=== PATIENT | male | born 1945 | race Caucasian/White ===

== ENCOUNTER 2022-11-20 04:08 | Observation (INO) | payer MEDICARE, SELFPAY ==
[2022-11-20] VITALS (34 sets, daily range): BP systolic 79–130; BP diastolic 46–69; PULSE 82–120; RESP 14–32; TEMP 36.5–37.7; O2SAT 90–97; BMI 33.6
--- NOTE | ~2022-11-20 | XR_ITS ---
EXAMINATION: XR chest 2V DATE: 11/20/2022 07:39 INDICATION: Cough and weakness TECHNIQUE: Frontal and lateral views of the chest are obtained COMPARISON: None available FINDINGS: The lungs are free of acute opacities. No pleural effusion or pneumothorax. The cardiomedia stinal silhouette is normal. There is moderate thoracic spondylosis. IMPRESSION: 1. No acute cardiopulmonary abnormality. Reviewed, dictated and finalized at location A.
--- NOTE | ~2022-11-20 | XR_ITS ---
EXAM: XR abdomen/kub 1V DATE: 11/20/2022 18:48 HISTORY: hematuria, flank pain,urinary retention hx of a kidney stone . COMPARISON: None available. FINDINGS: Clear lung bases. Normal bowel gas pattern. No organomegaly. Multiple calcified cages proj ect over the bilateral renal shadows. Pelvic phleboliths. Lower lumbar degenerative disc disease. Jose Manuel ateral uncomplicated appearing but incompletely visualized hip arthroplasties. IMPRESSION: Bilateral nephrolithiasis. Reviewed, dictated and finalized at location K. IMPRESSION: Bilateral nephrolithiasis.
[2022-11-20] MEDS: SODIUM CHLORIDE 0.9% IV 1,000 ML 999 ML IV CONT ×3 (04:26→18:50)
[2022-11-20] MEDS: ONDANSETRON INJ 4 MG/2 ML VIAL IV PUSH ×2 (04:28→21:14)
--- NOTE | 2022-11-20 04:36 | ED.NAVMDI ---
HPI - Nausea/Vomiting/Diarrhea General Chief complaint: Nausea/Vomiting/Diarrhea <Nilson Gleason MD - Last Filed: 11/22/22 10:04> Stated complaint: Vomitting <Nilson Gleason MD - Last Filed: 11/22/22 10:04> Time Seen by Provider: 11/20/22 04:32 <Nilson Gleason MD - Last Filed: 11/22/22 10:04> Source: patient and RN notes reviewed <Nilson Gleason MD - Last Filed: 11/22/22 10:04> Mode of arrival: ambulatory <Nilson Gleason MD - Last Filed: 11/22/22 10:04> Limitations: no limitations <Nilson Gleason MD - Last Filed: 11/22/22 10:04> History of Present Illness MD elicited complaint: nausea and vomiting <Nilson Gleason MD - Last Filed: 11/22/22 10:04> Onset (ago): day(s) (2) <Nilson Gleason MD - Last Filed: 11/22/22 10:04> Description of vomiting: food contents and watery <Nilson Gleason MD - Last Filed: 11/22/22 10:04> Description of diarrhea: semi-solid <Nilson Gleason MD - Last Filed: 11/22/22 10:04> Associated nausea: Yes <Nilson Gleason MD - Last Filed: 11/22/22 10:04> Associated abdominal pain: No <Nilson Gleason MD - Last Filed: 11/22/22 10:04> Exacerbating factors: eating <Nilson Gleason MD - Last Filed: 11/22/22 10:04> Relieving factors: none <Nilson Gleason MD - Last Filed: 11/22/22 10:04> Associated symptoms: myalgias, cough, headaches, malaise and weakness <Nilson Gleason MD - Last Filed: 11/22/22 10:04> Related Data Home medications: Home Medications Medication Instructions Recorded Confirmed apixaban 5 mg tablet (Eliquis) 5 mg PO BID 11/20/22 11/21/22 <Nilson Gleason MD - Last Filed: 11/22/22 10:04> Allergies/Adverse reactions: Allergies Allergy/AdvReac Type Severity Reaction Status Date / Time No Known Allergies Allergy Verified 11/20/22 04:20 <Nilson Gleason MD - Last Filed: 11/22/22 10:04> Review of Systems Review of Systems: All systems reviewed & are unremarkable except as noted in HPI and below <Nilson Gleason MD - Last Filed: 11/22/22 10:04> Genitourinary: Genitourinary: Reports hematuria <Nilson Gleason MD - Last Filed: 11/22/22 10:04> PMFSH Past Medical History Medical History: Medical History (Updated 11/21/22 @ 01:22 by Gisel Gomez MD) DVT (deep venous thrombosis) <Nilson Gleason MD - Last Filed: 11/22/22 10:04> Surgical History Surgical History: Surgical History History of hip replacement bilateral <Nilson Gleason MD - Last Filed: 11/22/22 10:04> Family History Family History: Family History (Updated 11/21/22 @ 01:46 by Lesia Gonzalez RN) Mother Cerebrovascular accident Other Unknown family medical history <Nilson Gleason MD - Last Filed: 11/22/22 10:04> Social History Social History: Social History (Updated 11/20/22 @ 04:46 by Nilson Gleason MD) Smoking status: Never smoker Second hand tobacco smoke exposure: No Alcohol intake: former Substance use: never Substance use type: does not use Lack of Transportation: No Lack of Food: Never True Current Housing: I Have Housing Concerned About Future Housing: No Difficulty Paying Gas/Electric Bills: No Difficulty Paying for Meds: No Currently Unemployed: No Education: Trade/Vocational Certificate Difficulty w/ Childcare or Family Care: No Spiritual care concerns: No <Nilson Gleason MD - Last Filed: 11/22/22 10:04> Exam Const: General: healthy appearing, no acute distress and alert <Nilson Gleason MD - Last Filed: 11/22/22 10:04> Nutritional Appearance: well nourished <Nilson Gleason MD - Last Filed: 11/22/22 10:04> Orientation/consciousness: patient oriented x3 <Nilson Gleason MD - Last Filed: 11/22/22 10:04> Limitations: no limitations <Nilson Gleason MD - Last Filed: 11/22/22 10:04> HENMT: Head: normal to inspection <Nilson Gleason MD - [place]
[2022-11-20 05:05] LABS: Basophils Absolute Auto 0.03 K/mm3 (0.00-0.10); Basophils Percent Auto 0.3 % (0.0-1.0); Hematocrit 38.4 % (37.0-46.0); Hemoglobin 12.1 g/dL (12.4-15.3); Immature Granulocyte Absolute 0.05 K/mm3 (0.00-0.00); Immature Granulocyte Percent A 0.4 % (0.0-0.0); Lymphocytes Percent Auto 1.7 % (18.0-42.0); Mean Corpuscular HGB Conc 31.5 g/dL (32.0-36.0); Mean Corpuscular Hemoglobin 28.5 pg (27.0-31.0); Mean Corpuscular Volume 90.6 fL (78.0-102.0); Mean Platelet Volume 10.4 fl (8.7-11.0); Monocytes Absolute Auto 0.02 K/mm3 (0.10-0.90); Monocytes Percent Auto 0.2 % (2.0-11.0); Neutrophils Absolute Auto 11.3 K/mm3 (1.7-7.2); Neutrophils Percent Auto 97.4 % (50.0-70.0); Platelet Count Result 212 K/mm3 (150-420); Red Blood Count 4.24 M/mm3 (4.70-6.10); Red Cell Distribution Width 14.3 % (11.6-14.4); White Blood Count 11.6 K/mm3 (4.8-10.8)
[2022-11-20 05:21] LABS: Lactic Acid Reflex 3.4 mmol/L (0.4-2.0)
[2022-11-20 05:28] LABS: Alanine Aminotransferase 28 U/L (16-63); Albumin Level 2.7 g/dL (3.4-5.0); Alkaline Phosphatase 120 U/L (46-116); Anion Gap 10 mmol/L (8-16); Aspartate Amino Transferase 19 U/L (15-37); Bilirubin,Total 0.7 mg/dL (0.00-1.00); Blood Urea Nitrogen 21 mg/dL (7-18); Carbon Dioxide 25 mmol/L (21-32); Chloride 106 mmol/L (98-108); Estimated CRCL calculation 38 ml/min; Estimated Glomerular Filt Rate 49; Glucose 116 mg/dL (70-99); Osmolality Calculated 296 mOsm/kg (285-295); Sodium 141 mmol/L (136-145); Total Protein 6.8 g/dL (6.4-8.2)
[2022-11-20 05:30] LABS: CRP 18.4 mg/dL (0.0-0.9)
[2022-11-20 05:34] LABS: Bilirubin Urine Negative (Negative); Blood Urine 3+ (Negative); Color Urine Light Yellow (Yellow); Glucose Urine UA Negative (Negative); Ketones Urine Negative (Negative); Leukocyte Esterase Ur 3+ LEU/UL (Negative); Nitrate Urine Positive (Negative); Protein Urine 2+ (Negative); Specific Grav Ur 1.015 (1.010-1.020); Urobilinogen Urine 0.2 mg/dL (0.2-1.0)
[2022-11-20 05:42] LABS: Influenza A QL RT-PCR Negative (Negative); Influenza B QL RT-PCR Negative (Negative); SARS-CoV-2 RNA PCR Negative (Negative)
[2022-11-20 05:45] LABS: Add Urine Microscopic? YES; Appearance Urine Cloudy (Clear); Bacteria Urine 4+ /hpf; RBC Urine >75 /hpf (0-2); Squamous Epithelial Cell Urine Occasional /hpf (Few); WBC Urine >75 /hpf (0-3)
--- NOTE | 2022-11-20 06:48 | PC.NURSE ---
Pt resting c family at bedside. POC discussed c pt to await a 3 hr timed Lactic acid blood redraw. VSS, lights dimmed, no c/o pain or n/v. Call beckwith at pt side.
--- NOTE | 2022-11-20 06:59 | PC.NURSE ---
Pt resting, report to CHRISTY Hughes
[2022-11-20] MEDS: LACTATED RINGERS 1,000 ML 999 ML IV CONT (07:07)
[2022-11-20 08:02] LABS: Reflex Lactic Acid Yes or No Add Lactic
--- NOTE | 2022-11-20 08:08 | PC.NURSE ---
0700report obtained from juan pérez. no questions or concerns. introduced self to pt. pt resting per cot. and daughter at bedside. call beckwith in reach. 0730 pt denies any pain, feeling better since arrival. denies nausea, no vomiting 0810 lab drawn for repeat lactic level
[2022-11-20 08:36] LABS: Lactic Acid 1.6 mmol/L (0.4-2.0)
--- NOTE | 2022-11-20 09:00 | ADMGEN ---
This patient, Cristofer Yi, was admitted to 2nd Floor Room 205-1. Patient/family oriented to hospital policies and general routines including ID bracelet, bed and alarms, visiting hours, pain management, procedures, bathroom and other care routines, personal items, smoking policy, room service/diet, and visiting hours. Information on how to activate the Rapid Response Team has been discussed. Patient/Family are encouraged to report perceived risks to care and to ask questions if they do not understand what they are told or what they should do.
[2022-11-20] MEDS: SODIUM CHLORIDE 0.9% IV 1,000 ML 125 ML IV CONT (09:28)
[2022-11-20] MEDS: APIXABAN 2.5 MG TABLET 5 MG PO ×2 (09:29→17:17)
[2022-11-20] MEDS: HYDROcodone/acetaminophen (*CRX) 5-325 MG TABLET 1 TAB PO (09:30)
[2022-11-20] MEDS: LORATADINE 10 MG TABLET PO (12:33)
--- NOTE | 2022-11-20 19:18 | PM.EVENT ---
Event Note Event Note Event Note: ordered warren to be placed due to inadequate urine output. Patient has had over 4000ml infused due to sepsis and according to nurse have only put out approximately 700 which is still inadequate. According to patients Nurse Ling patient preferred to be bladder scan . According to Ling RN while patient was at [facility] he was ordered bladder scan which indicate he has a history of urinary retention and refused warren placement. Encouraged patient nurse to speak with him about placement of warren. Patient wants warren placed as last option. This is last option and straight cath increase further introduction to bacteria. Will order straight cath for now and speak with patient myself in the am.
--- NOTE | 2022-11-20 19:52 | PC.NURSE ---
Bladder scan completed 1 image showed 370mL retaining and a printed copy showing 284mL of urine retained in pt's bladder.
--- NOTE | 2022-11-20 19:59 | PC.NURSE ---
ANABELL Manuel being made aware and notified of bladder scan results, and CT results.
--- NOTE | 2022-11-20 20:31 | PC.NURSE ---
Sri Manuel, [employer] BUSINESS ANALYST/Hospitalist, notified that nurse was unable to insert #16 Fr warren cath and a #16 Coude. Patient stated this has happened several times before. Sri Manuel working on pt transfer to [facility].
--- NOTE | 2022-11-20 21:09 | PC.NURSE ---
Sri Manuel, PACKING SUPERVISOR/Hospitalist, updated on patient status and blood pressure of 104/60 with MAP of 75.
--- NOTE | 2022-11-20 21:14 | PM.TDS ---
Transfer Discharge Sum: Prov Provider Date of admission: 11/20/22 08:23 Primary care physician: UNKNOWN,DOCTOR Admitting clinician: Favio Wu MD Attending physician on admission: Norberto Wu Attending physician on discharge: Norberto uW Discharging clinician: Be Manuel DS: Admitting Diagnosis Discharge Date 11/20/2022 Admitting Diagnosis sepsis DS: Discharge Diagnosis Discharge Diagnosis Plan sepsis Transfer Discharge Sum: Med Medications Active and Home Medications: Home Medications apixaban 5 mg tablet (Eliquis) 5 mg PO BID 11/20/22 [History Confirmed 11/20/22] Active Medications Acetaminophen (Acetaminophen 325 Mg Tablet) 650 mg PO Q4H PRN PRN Reason: Mild Pain (1-3) or Fever Hydrocodone Bitart/Acetaminophen (Hydrocodone/Acetaminophen (*Crx) 5-325 Mg Tablet) 1 tab PO Q6HR PRN PRN Reason: Pain Rated 7-10 Apixaban (Apixaban 2.5 Mg Tablet) 5 mg PO BID [facility] Stop: 12/20/22 08:59 Last Admin: 11/20/22 17:17 Dose: 5 mg Fluticasone Propionate (Fluticasone Propionate 0.05% Na Spr 16 Gm Btl (*Bkc)) 1 spray NASAL Q12HR [facility] Last Admin: 11/20/22 12:17 Dose: Not Given Vancomycin HCl (Vancomycin 1,500 Mg/D5w 500 Ml) 1,500 mg in 500 mls @ 250 mls/hr IVPB Q24H DELL Norepinephrine Bitartrate (Levophed 8 Mg/D5w 250 Ml) 8 mg in 250 mls @ 9.375 mls/hr IV CONT .Q24H DELL Loratadine (Loratadine 10 Mg Tablet) 10 mg PO QAM [facility] Last Admin: 11/20/22 12:33 Dose: 10 mg Ondansetron HCl (Ondansetron Inj 4 Mg/2 Ml Vial) 4 mg IV PUSH Q6H PRN PRN Reason: Nausea And Vomiting Tramadol HCl (Tramadol Hcl (*Crx) 25 Mg Tablet) 25 mg PO Q6H PRN PRN Reason: Pain Rated 4-6 Trazodone HCl (Trazodone Hcl 50 Mg Tablet) 50 mg PO HS PRN PRN Reason: Insomnia Transfer Discharge Sum: Hosp Hospital Course Hospital course: Cristofer Yi is a 76 year old male that represented to our ED with complains of n/v/d found to be septic secondary to a UTI, as evidence by tachycardiac, hypotensive and an elevated lactic acid on admission.patient has a pass medical history of dvt to upper extremity,and a history of kidney stone. It was originally believe that patient condition would improve with fluid and antibiotic. After over 4L patient blood pressure remain in the 80's/50's. Patient was also retaining fluid.It was reported that his output was 700ml. A KUB was completed to determine if there was a blockage since patient had a history of stones. No stones noted on KUB. A warren was unable to be placed. According to patient he has had problems with warren placement in the pass. Patient has been placed on levophed and awaiting call back for transfer. Patient recieved rocephan in the ED and vanco was added. His wbc is slightly elevated Time Spent with Patient Time attestation: Total time spent providing and/or coordinating transfer services: Exam Narrative: refer to ED notes exam was not completed by the provider DS: Data Data Completed and Pending Labs on day of discharge: Labs from last 24 hours 11/20/22 11/20/22 11/20/22 08:12 05:00 05:00 WBC RBC Hgb Hct MCV MCH MCHC RDW Plt Count MPV Immature Gran % (Auto) Neut % (Auto) Lymph % (Auto) Granite % (Auto) Eos % (Auto) Baso % (Auto) Lymph # (Auto) Granite # (Auto) Eos # (Auto) Baso # (Auto) Abs Immat Gran (auto) Absolute Neuts (auto) Absolute Nucleated RBC Nucleated RBC % Sodium Potassium Chloride Carbon Dioxide Anion Gap BUN Creatinine Estim Creat Clear Calc Estimated GFR Glucose Calculated Osmolality Lactic Acid 1.6 3.4 H Calcium Total Bilirubin AST ALT Alkaline Phosphatase C-Reactive Protein 18.4 H Total Protein Albumin Urine Color Urine Appearance Urine pH Ur Specific Drummond Urine Protein Urine Glucose (UA) Urine Ketones Ur Blood (Man) Urine Nitrate Urine Bili
[2022-11-20] MEDS: NOREPINEPHRINE 8 MG/D5W 250 ML 8 MG/250 ML BAG 9.38 MG IV CONT (21:54)
--- NOTE | 2022-11-20 23:02 | PC.NURSE ---
This RN spoke w/Lesia at [facility] and gave report on the pt. After report was completed this RN informed Lesia that we will contact [facility] once the pt is picked up by ambulance for transfer.
--- NOTE | 2022-11-20 23:05 | PC.NURSE ---
[facility] called to transfer patient to [facility] for higher level of care.
--- NOTE | 2022-11-20 23:16 | PC.NURSE ---
This RN attempted to contact pt's daughter, Sidra, and was unable to get ahold of her. This RN left a voicemail informing the daughter that the pt will be transferred to [facility] and gave a report to Lesia.
--- NOTE | 2022-11-20 23:26 | PC.NURSE ---
Pt's belonging placed in belongings bag and prepared for grape picker when ambulance crew arrives.
--- NOTE | 2022-11-20 23:30 | PC.NURSE ---
Ambulance crew arrived and this RN rode w/pt while on drip to [facility] and passed pt off to Lesia HARRISON.
== END 2022-11-20 23:35 | disposition short-term general hospital (02) ==
LOC: CHSED 08:22 → CHS2ND 08:41
PROVIDERS: Admitting Provider Internal Medicine; Emergency Provider Emergency Medicine; Visit Provider Internal Medicine
DX: A41.9 Sepsis, unspecified organism (principal); N39.0 Urinary tract infection, site not specified; Z86.718 Personal history of other venous thrombosis and embolism; Z79.01 Long term (current) use of anticoagulants; Z96.643 Presence of artificial hip joint, bilateral; Z20.822 Contact with and (suspected) exposure to COVID-19
CPT/HCPCS: 36415; 71046; 74018; 80053; 81001; 83605; 85025; 86140; 87040; 87077; 87086; 87088; 87147; 87186; 87502; 96361; 96365; 96366; 96367; 96375; 96376; 99285; A9270; G0378; J0696; J2405; J3370; J7030; J7120; U0003; U0005

== ENCOUNTER 2022-11-21 00:21 | Inpatient (IN) | payer MEDICARE, SELFPAY ==
[2022-11-21] VITALS (11 sets, daily range): BP systolic 91–125; BP diastolic 57–77; PULSE 75–104; RESP 15–20; TEMP 36.8–36.9; O2SAT 93–100; BMI 28.1
--- NOTE | ~2022-11-21 | XR_ITS ---
EXAMINATION: XR chest 1V portable DATE: 11/21/2022 05:39 INDICATION: Sepsis. TECHNIQUE: A single frontal view of the chest was obtained. COMPARISON: Chest 2 views 11/20/2022 FINDINGS: The chest demonstrates clear lungs without pneumonia, pleural effusion, or pneumothorax. Th e heart size is normal. IMPRESSION: 1. No acute cardiopulmonary disease. Reviewed, dictated and finalized at location A.
--- NOTE | ~2022-11-21 | CT_ITS ---
EXAMINATION: CT abdomen pelvis wo con DATE: 11/21/2022 13:03 INDICATION: Abdominal pain and hematuria TECHNIQUE: Computed tomography (CT) of the chest was performed without intravenous contrast. The dose -length product (DLP) was 695.84 mGy-cm. Automated exposure control and iterative reconstruction tech nique were employed. COMPARISON: None FINDINGS: There are small pleural effusions. Mild atelectasis is noted in the lung bases. The heart s ize is normal. Calcified left hilar and subcarinal lymph nodes are consistent with old granulomatous disease. There is calcified coronary artery atherosclerosis. Cysts of the liver measure up to 8 mm in the left hepatic lobe. Punctate calcifications of the liver and spleen likely represent healed granu lomatous disease. There is a small sliding hiatal hernia. Punctate calcifications of the pancreas lik poornima reflect chronic pancreatitis. The gallbladder and adrenal glands are normal. Nonobstructing stone s of the kidneys measure up to 11 mm on the left and 4 mm on the right. Although evaluation is limite d by streak artifact in the pelvis, no stones are identified in the ureters or bladder. No hydronephr osis or hydroureter. There is mild inflammatory change surrounding the right mid ureter. There is a s mall volume of pelvic ascites. No pathologically enlarged abdominal or pelvic lymph nodes are identif ied. There is mild lumbar spondylosis. Bilateral hip arthroplasties are noted. IMPRESSION: 1. Mild inflammatory change surrounding the right ureter which could reflect recent passage of stone. No ureteral or bladder stones identified. 2. Nonobstructing bilateral nephrolithiasis. Reviewed, dictated and finalized at location B. IMPRESSION: 1. Mild inflammatory change surrounding the right ureter which could reflect re cent passage of stone. No ureteral or bladder stones identified. 2. Nonobstructing bilateral nephrolithiasis.
--- NOTE | 2022-11-21 00:30 | ADMGEN ---
This patient, Cristofer Yi, was admitted to Intensive Care Unit-1. Patient/family oriented to hospital policies and general routines including ID bracelet, bed and alarms, visiting hours, pain management, procedures, bathroom and other care routines, personal items, smoking policy, room service/diet, and visiting hours. Information on how to activate the Rapid Response Team has been discussed. Patient/Family are encouraged to report perceived risks to care and to ask questions if they do not understand what they are told or what they should do.
--- NOTE | 2022-11-21 00:58 | PM.IMHP ---
H&P: HPI History of Present Illness Date/Time: 11/21/22 00:58 Chief Complaint: Chills Narrative: This is a 76-year-old male with past medical history significant for DVT, degenerative joint disease, status post bilateral hip replacement. Patient presents to [facility] as a transfer from outside facility [facility] after he presented there to the emergency room due to trach in chills, back pain and abdominal pain, patient has not been feeling well for the last 3 days is busy [place] was staying with his daughter, denies any nausea or vomiting had an episode of diarrhea, appetite has not been good. Patient initially required fluid resuscitation due to low blood pressure however did not initially respond and needed vasopressor and transferred to our facility to intensive care unit. However patient at this moment is not requiring vasopressor is awake and alert. Review of Systems Review of Systems: Chills, rigors, abdominal pain, back pain for 3 days Constitutional: Constitutional: Reports chills, Reports fever(s), Reports malaise and Reports poor appetite Eyes: Eyes: Denies change in vision ENT: Denies dysphagia and Denies odynophagia Cardiovascular: Cardiovascular: Denies chest pain Respiratory: Respiratory: Denies chest congestion, Denies cough and Denies dyspnea Gastrointestinal: Gastrointestinal: Reports abdominal pain, Denies dyspepsia, Denies heartburn, Reports diarrhea (One episode), Denies nausea and Denies vomiting Genitourinary: Genitourinary: Denies dysuria and Reports flank pain Musculoskeletal: Musculoskeletal: Reports other (Bilateral hip replacement, left leg DVT) Integumentary/Breasts: Skin/Breast: Denies rash Neurologic: Denies focal weakness and Denies Sensory deficit (Neuro) Psychiatric: Psychiatric: Reports no additional psychiatric complaints and Reports as per HPI Endocrine: Endocrine: Denies cold intolerance, Denies flushing, Denies heat intolerance, Denies polyphagia, Denies polydipsia and Denies palpitations Hematologic/Lymphatic: Hematologic/Lymphatic: Reports no additional hematologic/lymphatic complaints and Reports as per HPI Allergic/Immunologic: Allergic/Immunologic: Reports no additional allergic/immunologic complaints and Reports as per HPI PMFSH Past Medical History Medical History (Updated 11/21/22 @ 01:22 by Gisel Gomez MD) DVT (deep venous thrombosis) Surgical History Surgical History History of hip replacement bilateral Family History Family History (Updated 11/20/22 @ 11:04 by Ling Sullivan RN) Other Unknown family medical history Social History Social History (Updated 11/20/22 @ 04:46 by Nilson Gleason MD) Smoking status: Never smoker Second hand tobacco smoke exposure: No Alcohol intake: former Substance use: never Substance use type: does not use Lack of Transportation: No Lack of Food: Never True Current Housing: I Have Housing Concerned About Future Housing: No Difficulty Paying Gas/Electric Bills: No Difficulty Paying for Meds: No Currently Unemployed: No Education: Trade/Vocational Certificate Difficulty w/ Childcare or Family Care: No Spiritual care concerns: No Meds Home Medications and Allergies Home Medications Medication Instructions Recorded Confirmed Type apixaban 5 mg tablet (Eliquis) 5 mg PO BID 11/20/22 11/21/22 History fluticasone propionate 50 1 spray intranasal Q12HR 11/20/22 11/21/22 Rx mcg/actuation nasal spray,suspension loratadine 10 mg tablet 10 mg PO QAM 11/20/22 11/21/22 Rx trazodone 50 mg tablet 50 mg PO HS PRN Insomnia 11/20/22 11/21/22 Rx Allergies Allergy/AdvReac Type Severity Reaction Status Date / Time No Known Allergies Allergy Verified 11/20/22 04:20 Exam Narrative: Patient is sitting in bed Const: General: comfortable, no acute distress, well developed,
--- NOTE | 2022-11-21 01:01 | ECG_ITS ---
Measurements Intervals Concepcion Rate: 75 P: 29 OH: 155 QRS: -2 QRSD: 80 T: 12 QT: 369 QTc: 414 Interpretive Statements SINUS RHYTHM NORMAL ECG NO PREVIOUS ECG AVAILABLE FOR COMPARISON Electronically Signed On 11-21-2022 11:55:08 CDT by Bradford Howe M.D.
[2022-11-21 02:38] LABS: Anion Gap 6 mmol/L (8-16); Blood Urea Nitrogen 16 mg/dL (9-20); Calcium 7.6 mg/dL (8.4-10.2); Carbon Dioxide 22 mmol/L (22-30); Chloride 106 mmol/L (98-107); Estimated CRCL calculation 52 ml/min; Estimated Glomerular Filt Rate > 60; Glucose 94 mg/dL (65-110); Lactic Acid Reflex 0.7 mmol/L (0.7-2.0); Phosphorus 2.7 mg/dL (2.5-4.5); Sodium 134 mmol/L (137-145)
[2022-11-21 02:39] LABS: Partial Thromboplastin Time 42.5 SECONDS (22.3-36.8)
--- NOTE | 2022-11-21 04:52 | PC.NURSE ---
Spoke with daughter, Sidra. She plans to come to the hospital later today.
[2022-11-21] MEDS: cefTRIAXone 2 GM/NS 100 ML 2 GM/100 ML BAG IVPB (09:37)
--- NOTE | 2022-11-21 17:06 | PM.IMPN ---
Progress Note: A&P Assessment and Plan (1) Sepsis: Qualifiers: Sepsis acute organ dysfunction status: without acute organ dysfunction Sepsis type: sepsis due to unspecified organism Qualified Code(s): A41.9 - Sepsis, unspecified organism Code(s): A41.9 - Sepsis, unspecified organism Status: Acute (2) Acute UTI: Code(s): N39.0 - Urinary tract infection, site not specified Status: Acute (3) KEIRY (acute kidney injury): Code(s): N17.9 - Acute kidney failure, unspecified Status: Acute (4) Acute DVT (deep venous thrombosis): Code(s): I82.409 - Acute embolism and thrombosis of unspecified deep veins of unspecified lower extremity Status: Acute Plan Septic shock transiently required Levophed. Blood pressure has been stable today. Likely source UTI. Bacteremia with Gram-negative bacilli await identification repeat blood culture in a.m. UTI: Was given ceftriaxone and vancomycin yesterday. Now bacteremic with Gram-negative bacilli. Will hold vancomycin. Hematuria will get CT abdomen pelvis to further evaluate History of urethral stricture Recent DVT on Eliquis since 1 month now. Left lower extremity. Code status full code Subjective Date/time seen: 11/21/22 17:06 Interval history: Chart reviewed. History reviewed. Feeling better. Sitting up and eating. No abdominal pain had pain in low back on right side. Had some hematuria yesterday family at bedside discussed with them Review of Systems Review of Systems: All systems reviewed & are unremarkable except as noted in HPI and below Exam Narrative: GENERAL: The patient is well developed, not in acute distress HEENT: Nonicteric sclerae, PERRLA, EOMI. Oropharynx clear. Moist mucous membranes. Conjunctivae appear well perfused. CHEST: Chest wall is nontender. HEART: Regular rate and rhythm without murmur, rubs, or gallops LUNGS: Clear to auscultation bilaterally. no respiratory distress ABDOMEN: Soft, positive bowel sounds, non-tender, no organomegaly. SKIN: No rash, no excessive bruising, petechiae, or purpura. NEUROLOGIC: Cranial nerves II-XII intact, alert and oriented x 3, no gross motor deficits EXTREMITIES: no edema, cyanosis or clubbing Objective Data Vital Signs Vital Signs: Vital Signs - 24 hr 11/21/22 01:54 11/21/22 00:27 11/21/22 00:27 Temperature Pulse Rate 104 H 102 H Respiratory Rate 17 Blood Pressure 107/59 L Pulse Oximetry 95 Oxygen Delivery Room Air 11/21/22 02:31 11/21/22 02:30 11/21/22 04:00 Temperature 98.4 F Pulse Rate 81 81 79 Respiratory Rate 17 Blood Pressure 96/61 L Pulse Oximetry 93 93 Oxygen Delivery Room Air 11/21/22 04:00 11/21/22 04:00 11/21/22 04:56 Temperature Pulse Rate 79 77 79 Respiratory Rate 18 Blood Pressure 91/60 L 91/60 L Pulse Oximetry 93 Oxygen Delivery 11/21/22 06:00 11/21/22 06:00 11/21/22 08:00 Temperature 98.4 F 98.2 F Pulse Rate 88 88 80 Respiratory Rate 16 15 Blood Pressure 102/59 L 106/60 Pulse Oximetry 94 95 Oxygen Delivery 11/21/22 08:00 11/21/22 10:00 11/21/22 08:00 Temperature Pulse Rate 82 75 Respiratory Rate Blood Pressure Pulse Oximetry 100 Oxygen Delivery Room Air 11/21/22 12:00 11/21/22 12:00 11/21/22 12:00 Temperature 98.3 F Pulse Rate 85 85 Respiratory Rate 20 Blood Pressure 110/57 L Pulse Oximetry 100 98 Oxygen Delivery Room Air 11/21/22 16:00 11/21/22 16:00 Temperature 98.3 F Pulse Rate 81 81 Respiratory Rate 20 Blood Pressure 125/76 Pulse Oximetry 98 Oxygen Delivery Intake/Output Intake/Output: Intake & Output 11/18/22 11/19/22 11/20/22 11/21/22 23:59 23:59 23:59 23:59 Intake Total 1360 Output Total 2175 Balance -815 Meds/Results Medications: Active Medications Generic Name Dose Route Start Last Admin Trade Name Freq PRN Reason Stop Dose Admin Acetaminophen 650 mg 11/21/22 00:58 Acet
[2022-11-21] MEDS: APIXABAN 5 MG TABLET PO (20:58)
[2022-11-22] VITALS: BP 118/75; PULSE 84; RESP 20; TEMP 36.8; O2SAT 100
[2022-11-22 03:31] VITALS: BP 117/75; PULSE 80; RESP 20; TEMP 36.8; O2SAT 100
[2022-11-22 04:00] VITALS: PULSE 85
[2022-11-22 05:50] LABS: Basophils Percent Auto 0.4 % (0.2-1.2); Eosinophils Absolute Auto 0.1 K/mm3 (0-0.3); Eosinophils Percent Auto 1.4 % (0-4.4); Hematocrit 38.1 % (42.0-52.0); Hemoglobin 12.2 g/dL (14.0-18.0); Immature Granulocyte Absolute 0.03 K/mm3 (0.00-0.031); Immature Granulocyte Percent A 0.4 % (0-0.5); Lymphocytes Percent Auto 14.8 % (18.3-44.2); Mean Corpuscular Hemoglobin 28.6 pg (26-34); Mean Corpuscular Volume 89.2 fl (80-100); Mean Platelet Volume 10.6 fl (7.4-10.4); Monocytes Absolute Auto 0.6 K/mm3 (0.1-0.6); Monocytes Percent Auto 6.9 % (2.6-8.5); Neutrophils Absolute Auto 6.2 K/mm3 (1.3-6.7); Neutrophils Percent Auto 76.1 % (45.5-73.1); Platelet Count Result 193 k/mm3 (150-375); Red Blood Count 4.27 M/mm3 (4.6-6.20); Red Cell Distribution Width 14.7 % (11.5-14.5); White Blood Count 8.1 K/mm3 (4.5-10.0)
[2022-11-22 06:00] LABS: Alanine Aminotransferase 30 U/L (6-50); Albumin Level 3.5 g/dL (3.5-5.1); Alkaline Phosphatase 128 U/L (38-126); Anion Gap 7 mmol/L (8-16); Aspartate Amino Transferase 28 U/L (17-59); Bilirubin,Total 0.5 mg/dL (0.2-1.3); Blood Urea Nitrogen 12 mg/dL (9-20); Calcium 8.6 mg/dL (8.4-10.2); Carbon Dioxide 26 mmol/L (22-30); Chloride 105 mmol/L (98-107); Estimated CRCL calculation 52 ml/min; Estimated Glomerular Filt Rate > 60; Glucose 99 mg/dL (65-110); Magnesium 2.1 mg/dL (1.6-2.3); Potassium 4.3 mmol/L (3.4-5.0); Sodium 138 mmol/L (137-145)
[2022-11-22 08:00] VITALS: PULSE 80
[2022-11-22] MEDS: cefTRIAXone 2 GM/NS 100 ML 2 GM/100 ML BAG IVPB (08:45)
[2022-11-22] MEDS: LORATADINE 10 MG TABLET PO (08:45)
[2022-11-22] MEDS: APIXABAN 5 MG TABLET PO (08:45)
[2022-11-22 09:36] VITALS: BP 103/62; PULSE 86; RESP 18; TEMP 36.1; O2SAT 94
--- NOTE | 2022-11-22 09:43 | PCOTNOTE ---
Spoke with Dr. Carmona who is agreeable to bedrest orders being removed. Will remove bedrest.
--- NOTE | 2022-11-22 10:15 | PCPTNOTE ---
Spoke with OT, patient independent in room. Called hospitalist regarding patient independence, hospitalist OK with PT DC. will DC PT at this time due to no acute care goals identified.
[2022-11-22 12:00] VITALS: PULSE 84
--- NOTE | 2022-11-22 12:38 | PM.DS ---
DS: Admitting Diagnosis Discharge Date 11/22/2022 Admitting Diagnosis sepsis DS: Discharge Diagnosis Discharge Diagnosis (1) Sepsis: Qualifiers: Sepsis acute organ dysfunction status: without acute organ dysfunction Sepsis type: sepsis due to unspecified organism Qualified Code(s): A41.9 - Sepsis, unspecified organism Code(s): A41.9 - Sepsis, unspecified organism Status: Acute (2) Acute UTI: Code(s): N39.0 - Urinary tract infection, site not specified Status: Acute (3) KEIRY (acute kidney injury): Code(s): N17.9 - Acute kidney failure, unspecified Status: Acute (4) Acute DVT (deep venous thrombosis): Code(s): I82.409 - Acute embolism and thrombosis of unspecified deep veins of unspecified lower extremity Status: Acute DS: Summary Hospital Course Hospital Course: Septic shock transiently required Levophed.? Blood pressure has been stable since admission? Likely source UTI. Bacteremia with Enterobacter cloacae complex. Sensitive to Bactrim was switched to oral Bactrim discussed with ID pharmacist. UTI:? Was given ceftriaxone and vancomycin In the ED.? Now bacteremic with Gram-negative bacilli.? stop vancomycin. Continued on ceftriaxone during the hospital stay. Hematuria As reported by the patient. CT abdomen pelvis showed right ureter inflammatory change likely suggesting passage of stone. Bilateral kidney stones discussed prevention of stones with drinking plenty of water. Follow-up with urology as outpatient basis History of urethral stricture Recent DVT on Eliquis since 1 month now.? Left lower extremity. continue Eliquis as previously prescribed Code status full code Time Spent with Patient Time attestation: Total time spent providing and/or coordinating discharge services: 45 minutes Exam Narrative: GENERAL: The patient is well developed, not in acute distress HEENT: Nonicteric sclerae, PERRLA, EOMI. Oropharynx clear. Moist mucous membranes. Conjunctivae appear well perfused. CHEST: Chest wall is nontender. HEART: Regular rate and rhythm without murmur, rubs, or gallops LUNGS: Clear to auscultation bilaterally. no respiratory distress ABDOMEN: Soft, positive bowel sounds, non-tender, no organomegaly. SKIN: No rash, no excessive bruising, petechiae, or purpura. NEUROLOGIC: Cranial nerves II-XII intact, alert and oriented x 3, no gross motor deficits EXTREMITIES: no edema, cyanosis or clubbing DS: Data Data Completed and Pending Labs on day of discharge: Labs from last 24 hours 11/22/22 11/22/22 05:40 05:40 WBC 8.1 RBC 4.27 L Hgb 12.2 L Hct 38.1 L MCV 89.2 MCH 28.6 MCHC 32.0 RDW 14.7 H Plt Count 193 MPV 10.6 H Immature Gran % (Auto) 0.4 Neut % (Auto) 76.1 H Lymph % (Auto) 14.8 L Woods % (Auto) 6.9 Eos % (Auto) 1.4 Baso % (Auto) 0.4 Lymph # (Auto) 1.20 Woods # (Auto) 0.6 Eos # (Auto) 0.1 Baso # (Auto) 0.0 Abs Immat Gran (auto) 0.03 Absolute Neuts (auto) 6.2 Absolute Nucleated RBC 0.0 Nucleated RBC % 0.0 Sodium 138 Potassium 4.3 Chloride 105 Carbon Dioxide 26 Anion Gap 7 L BUN 12 Creatinine 1.00 Estim Creat Clear Calc 52 Estimated GFR > 60 Glucose 99 Calcium 8.6 Magnesium 2.1 Total Bilirubin 0.5 AST 28 ALT 30 Alkaline Phosphatase 128 H Total Protein 7.0 Albumin 3.5 Imaging Radiologist's impression: ITS Impressions Chest X-Ray 11/21/22 06:08 IMPRESSION: 1. No acute cardiopulmonary disease. Abdomen/Pelvis CT 11/21/22 13:10 IMPRESSION: 1. Mild inflammatory change surrounding the right ureter which could reflect recent passage of stone. No ureteral or bladder stones identified. 2. Nonobstructing bilateral nephrolithiasis. Discharge Plan Discharge Attending physician on discharge: Juan Diego Carmona Discharging Clinician: Juan Diego Carmona Anticipated Discharge Date/Time: 11/22/22 12:15 Patient Disposi
== END 2022-11-22 16:34 | disposition home or self-care (01) | DRG 690 ==
LOC: ANHICU 11:12 → ANH3MED 11-22 10:36 → ANHICU 11-23 12:51
PROVIDERS: Admitting Provider Internal Medicine; Visit Provider Internal Medicine
DX: N39.0 Urinary tract infection, site not specified (principal); N17.9 Acute kidney failure, unspecified; I82.402 Acute embolism and thrombosis of unspecified deep veins of left lower extremity; B96.89 Other specified bacterial agents as the cause of diseases classified elsewhere; Z86.718 Personal history of other venous thrombosis and embolism; Z96.643 Presence of artificial hip joint, bilateral
CPT/HCPCS: 36415; 71045; 74176; 80048; 80053; 83605; 83735; 84100; 85025; 85730; 87040; 93005; 97165; A9270; J0696